=== PATIENT | male | born 1945 | race Caucasian/White ===

== ENCOUNTER 2017-02-12 08:10 | Outpatient (CLI) | payer OTHER, MEDICARE ==
[~2017-02-12 08:10] MED LIST: AMOX-426 PO; ASPI81TA2 PO; ATOR10TA68 PO; AZIT250T PO; DIF100 PO; DOCU-144 PO; FLUT1DIS3 INH; GLIP5TAB13 PO; HYDR-1189 PO; LISI10TA5 PO; MONT10TA22 PO; NYSSUS PO; OMEP20CA4 PO; POTA20TA83 PO; PROR4 PO
== END 2017-02-12 19:33 | disposition home or self-care (01) ==
LOC: SCA 08:10
DX: Z01.818 Encounter for other preprocedural examination (principal); M47.894 Other spondylosis, thoracic region; Z96.651 Presence of right artificial knee joint
CPT/HCPCS: 71020-TC; 93005

== ENCOUNTER 2018-06-07 11:45 | Inpatient (IN) | payer OTHER, MEDICARE ==
[~2018-06-07] VITALS: Ht 177.8 cm; Wt 113.4 kg
[~2018-06-07 11:45] MED LIST changes: +ASPI-1155 PO; -ASPI81TA2 PO; +PROR4 INH
[2018-06-07 12:20] VITALS: BP_SYST 108
[2018-06-07] MEDS ORDERED: ACETAMINOPHEN 325 MG TABLET PO PRN (12:45)
[2018-06-07] MEDS ORDERED: IPRATROPIUM/ALBUTEROL SULFATE 3 ML AMPUL.NEB (DUONEB) INH ONE (12:45)
[2018-06-07 13:18] LABS: RED BLOOD CELL COUNT(AUTO) 5.08 MIL/uL (4.2-6.2)
[2018-06-07 13:19] LABS: BASOPHILS # (AUTO) 0.1 K/uL (0.0-0.2); BASOPHILS % (AUTO) 1.2 % (0.0-2.0); EOSINOPHILS # (AUTO) 0.7 K/uL (0.0-0.4); HEMATOCRIT 44.4 % (36-54); HEMOGLOBIN 14.9 g/dL (14.0-18.0); LYMPHOCYTES # (AUTO) 1.7 K/uL (1.0-5.5); LYMPHOCYTES % (AUTO) 21.9 % (20.5-51.5); MEAN CORPUSCULAR HEMOGLOBIN 29 pg (27-31); MEAN CORPUSCULAR HGB CONC 34 % (32-36); MEAN CORPUSCULAR VOLUME 87 fL (79.0-98.0); MONOCYTES # (AUTO) 1.3 K/uL (0.0-1.0); MONOCYTES % (AUTO) 15.8 % (1.7-9.3); NEUTROPHILS # (AUTO) 4.2 K/uL (1.8-7.7); NEUTROPHILS % (AUTO) 52.1 % (40.0-70.0); PLATELET COUNT (AUTO) 263 K/uL (130-430); RED CELL DISTRIBUTION WIDTH 13.3 % (9.0-15.0)
[2018-06-07 13:23] LABS: ANION GAP 3 (5-15); CALCIUM 8.6 mg/dL (8.4-11.0); CHLORIDE 104 mmol/L (98-107); CREATININE 1.07 mg/dL (0.55-1.30); GLUCOSE 89 mg/dL (70-99); POTASSIUM 3.8 mmol/L (3.5-5.1); SODIUM SERUM 136 mmol/L (136-145); UREA NITROGEN, BLOOD 27 mg/dL (8-21)
[2018-06-07] MEDS ORDERED: LAMOTRIGINE PO (13:57)
[2018-06-07] MEDS ORDERED: SER25 PO (13:57)
[2018-06-07] MEDS ORDERED: IPRA4AER INH (13:57)
[2018-06-07] MEDS ORDERED: HYDR25TA4 PO (13:57)
[2018-06-07] MEDS ORDERED: DESV50TA4 PO (13:57)
[2018-06-07] MEDS ORDERED: PRED10TA PO (13:57)
[2018-06-07] MEDS ORDERED: DOXY100C2 PO (14:01)
[2018-06-07] MEDS ORDERED: POTA8TAB4 PO (14:01)
[2018-06-07] MEDS ORDERED: TAMS-11 PO (14:01)
[2018-06-07 14:10] VITALS: BP_SYST 108
[2018-06-07] MEDS ORDERED: DEXTROSE 50% JECT 50 ML DISP.SYRIN IVP PRN (15:45)
[2018-06-07 15:53] VITALS: BP_SYST 109
[2018-06-07] MEDS ORDERED: guaiFENesin ER 600 MG TAB PO ONE (17:45)
[2018-06-07] MEDS ORDERED: methylPREDNISolone SOD SUCC 40 MG/ML VIAL IVP ONE (17:45)
[2018-06-07] MEDS ORDERED: MONTELUKAST 10 MG TABLET PO SCH (18:00)
[2018-06-07] MEDS: IPRATROPIUM/ALBUTEROL SULFATE 3 ML AMPUL.NEB (DUONEB) INH SCH ×2 (19:34→23:38)
[2018-06-07 20:00] VITALS: BP_SYST 120
[2018-06-07] MEDS: INSULIN REGULAR, HUMAN 100 UNITS/ML, 10 ML VIAL (novoLIN R) SUBCUT PRN (20:05)
[2018-06-07] MEDS: DOCUSATE SODIUM 250 MG CAPSULE PO SCH (20:07)
[2018-06-07] MEDS: LISINOPRIL 10 MG TABLET (PRINIVIL) PO SCH (20:07)
[2018-06-07 20:53] LABS: BILIRUBIN,URINE NEGATIVE (NEGATIVE); BLOOD, URINE NEGATIVE (NEGATIVE); CLARITY/URINE CLEAR (CLEAR); COLOR,URINE YELLOW (YELLOW); GLUCOSE,URINE NEGATIVE (NEGATIVE); KETONES,URINE NEGATIVE (NEGATIVE); LEUKOCYTE ESTERASE ,URINE NEGATIVE (NEGATIVE); NITRITE, URINE NEGATIVE (NEGATIVE); PROTEIN URINE NEGATIVE (NEGATIVE); UROBILINOGEN,URINE 0.2 (0.2-1.0)
[2018-06-07] MEDS: methylPREDNISolone SOD SUCC 40 MG/ML VIAL IVP SCH (21:31)
[2018-06-08 00:32] VITALS: BP_SYST 113
[2018-06-08] MEDS: IPRATROPIUM/ALBUTEROL SULFATE 3 ML AMPUL.NEB (DUONEB) INH SCH ×3 (03:00→11:18)
[2018-06-08] MEDS: INSULIN REGULAR, HUMAN 100 UNITS/ML, 10 ML VIAL (novoLIN R) SUBCUT PRN (06:10)
[2018-06-08 07:44] LABS: ALANINE AMINOTRANSFERASE 23 U/L (12-78); ALBUMIN 3.3 g/dL (3.4-4.8); ANION GAP 7 (5-15); ASPARTATE AMINOTRANSFERASE 14 U/L (10-37); CALCIUM 8.7 mg/dL (8.4-11.0); CHLORIDE 103 mmol/L (98-107); CREATININE 1.19 mg/dL (0.55-1.30); GLUCOSE 187 mg/dL (70-99); POTASSIUM 4.1 mmol/L (3.5-5.1); SODIUM SERUM 137 mmol/L (136-145); TOTAL BILIRUBIN 0.6 mg/dL (0.0-1.0); UREA NITROGEN, BLOOD 23 mg/dL (8-21)
[2018-06-08 07:53] VITALS: BP_SYST 112
[2018-06-08 07:53] LABS: HEMATOCRIT 46.7 % (36-54); HEMOGLOBIN 15.3 g/dL (14.0-18.0); MEAN CORPUSCULAR HEMOGLOBIN 29 pg (27-31); MEAN CORPUSCULAR HGB CONC 33 % (32-36); MEAN CORPUSCULAR VOLUME 88 fL (79.0-98.0); PLATELET COUNT (AUTO) 275 K/uL (130-430); RED CELL DISTRIBUTION WIDTH 13.2 % (9.0-15.0); WHITE BLOOD COUNT (AUTO) 8.2 K/uL (4.8-10.8)
[2018-06-08 07:54] LABS: BASOPHILS % (AUTO) 0.2 % (0.0-2.0); EOSINOPHILS % (AUTO) 0.1 % (0.0-4.0); LYMPHOCYTES # (AUTO) 0.6 K/uL (1.0-5.5); LYMPHOCYTES % (AUTO) 7.3 % (20.5-51.5); MONOCYTES # (AUTO) 0.4 K/uL (0.0-1.0); MONOCYTES % (AUTO) 4.5 % (1.7-9.3); NEUTROPHILS # (AUTO) 7.2 K/uL (1.8-7.7); NEUTROPHILS % (AUTO) 87.9 % (40.0-70.0)
[2018-06-08] MEDS: DOCUSATE SODIUM 250 MG CAPSULE PO SCH (08:32)
[2018-06-08] MEDS: LISINOPRIL 10 MG TABLET (PRINIVIL) PO SCH (08:32)
[2018-06-08 08:38] LABS: ERYTHROCYTE SEDIMENTATION RATE 3 MM/HR (0-15)
[2018-06-08] MEDS ORDERED: guaiFENesin ER 600 MG TAB PO SCH (09:00)
[2018-06-08] MEDS ORDERED: POTASSIUM CHLORIDE 8 MEQ TABLET.SA PO SCH (09:00)
[2018-06-08] MEDS ORDERED: TAMSULOSIN HCL 0.4 MG CAP PO SCH (09:00)
[2018-06-08] MEDS ORDERED: LAMOTRIGINE 200 MG PO SCH (09:00)
[2018-06-08] MEDS ORDERED: PREDNISONE 10 MG TABLET PO SCH (09:00)
[2018-06-08] MEDS ORDERED: DESVENLAFAXINE SUCCINATE 100 MG PO SCH (09:00)
[2018-06-08] MEDS ORDERED: HYDROCHLOROTHIAZIDE 25 MG TABLET (HCTZ) PO SCH (09:00)
[2018-06-08] MEDS ORDERED: ATORVASTATIN 10 MG TABLET PO SCH (09:00)
[2018-06-08] MEDS: methylPREDNISolone SOD SUCC 40 MG/ML VIAL IVP SCH (10:33)
[2018-06-08] MEDS ORDERED: L.RH1CAP PO (11:50)
[2018-06-08] MEDS ORDERED: LEVO750T45 PO (11:50)
[2018-06-08 11:51] VITALS: BP_SYST 110
[2018-06-08 12:07] VITALS: BP_SYST 110
== END 2018-06-08 13:25 | disposition home or self-care (01) | DRG 190 ==
LOC: SMU 11:45
PROVIDERS: ADMIT Internal Medicine; ATTEND Internal Medicine
DX: J44.0 Chronic obstructive pulmonary disease with (acute) lower respiratory infection (principal); J18.9 Pneumonia, unspecified organism; J45.901 Unspecified asthma with (acute) exacerbation; E44.1 Mild protein-calorie malnutrition; R65.10 Systemic inflammatory response syndrome (SIRS) of non-infectious origin without acute organ dysfunction; E11.9 Type 2 diabetes mellitus without complications; I10 Essential (primary) hypertension; E78.5 Hyperlipidemia, unspecified; F32.9 Major depressive disorder, single episode, unspecified; E66.9 Obesity, unspecified; N40.0 Benign prostatic hyperplasia without lower urinary tract symptoms; I25.10 Atherosclerotic heart disease of native coronary artery without angina pectoris; G89.29 Other chronic pain; Z96.651 Presence of right artificial knee joint; J44.1 Chronic obstructive pulmonary disease with (acute) exacerbation; G47.33 Obstructive sleep apnea (adult) (pediatric); R07.89 Other chest pain; Z79.899 Other long term (current) drug therapy; Z68.35 Body mass index [BMI] 35.0-35.9, adult
CPT/HCPCS: 36415; 71045; 71250-TC; 80048; 80053; 81003; 82962; 83036; 83605; 83735-TC; 84484; 85025; 85651-TC; 86710; 87040-TC; 93005; 94640; 94660; 94760; J1030; J1815; J1956; J7620

== ENCOUNTER 2019-01-23 15:04 | Outpatient (CLI) | payer OTHER, MEDICARE ==
[~2019-01-23 15:04] MED LIST changes: -AMOX-426 PO; -ASPI-1155 PO; -AZIT250T PO; +DESV50TA4 PO; -DIF100 PO; -DOCU-144 PO; +DOXY100C2 PO; -FLUT1DIS3 INH; -HYDR-1189 PO; +HYDR25TA4 PO; +IPRA4AER INH; +L.RH1CAP PO; +LAMOTRIGINE PO; +LEVO750T45 PO; -NYSSUS PO; -OMEP20CA4 PO; -POTA20TA83 PO; +POTA8TAB4 PO; +PRED10TA PO; -PROR4 PO; +SER25 PO; +TAMS-11 PO
== END 2019-01-23 21:05 | disposition home or self-care (01) ==
LOC: SCA 15:04
PROVIDERS: ATTEND Internal Medicine
DX: Z01.818 Encounter for other preprocedural examination (principal)
CPT/HCPCS: 93005

== ENCOUNTER 2019-01-26 14:40 | Outpatient (CLI) | payer OTHER, MEDICARE | END 2019-01-26 20:40 | disposition home or self-care (01) | LOC: SRD 14:40 | PROVIDERS: ATTEND Internal Medicine | DX: R05 Cough (principal) | CPT/HCPCS: 71046-TC ==

== ENCOUNTER 2019-04-06 07:10 | Outpatient (CLI) | payer OTHER, MEDICARE ==
[~2019-04-06] VITALS: Ht 180.3 cm; Wt 113.4 kg
[2019-04-06] MEDS ORDERED: REGADENOSON 0.4 MG/5 ML SYRINGE IVP ONE (08:00)
== END 2019-04-06 18:30 | disposition home or self-care (01) ==
LOC: SNM 07:10
PROVIDERS: ATTEND Internal Medicine
DX: I25.10 Atherosclerotic heart disease of native coronary artery without angina pectoris (principal)
CPT/HCPCS: 78452; 93017; A9500; J2785

== ENCOUNTER 2020-08-23 12:01 | Outpatient (CLI) | payer OTHER, MEDICARE ==
[~2020-08-23 12:01] MED LIST changes: +LISI10TA29 PO; -LISI10TA5 PO
== END 2020-08-23 18:03 | disposition home or self-care (01) ==
LOC: SRD 12:01
PROVIDERS: ATTEND Internal Medicine
DX: R05 Cough (principal); M47.814 Spondylosis without myelopathy or radiculopathy, thoracic region
CPT/HCPCS: 71046-TC

== ENCOUNTER 2021-03-03 15:29 | Outpatient (CLI) | payer OTHER, MEDICARE ==
[~2021-03-03 15:29] MED LIST changes: -DOXY100C2 PO; +DOXY100C5 PO
== END 2021-03-03 20:37 | disposition home or self-care (01) ==
LOC: SRD 15:29
PROVIDERS: ATTEND Internal Medicine
DX: J18.9 Pneumonia, unspecified organism (principal); M47.814 Spondylosis without myelopathy or radiculopathy, thoracic region
CPT/HCPCS: 71046-TC

== ENCOUNTER 2021-05-08 11:15 | Outpatient (CLI) | payer OTHER, MEDICARE ==
[~2021-05-08 11:15] MED LIST changes: -POTA8TAB4 PO; +POTA8TAB66 PO
[2021-05-08 12:19] LABS: BILIRUBIN,URINE NEGATIVE (NEGATIVE); BLOOD, URINE NEGATIVE (NEGATIVE); CLARITY/URINE CLEAR (CLEAR); COLOR,URINE YELLOW (YELLOW); GLUCOSE,URINE 3+ (NEGATIVE); KETONES,URINE NEGATIVE (NEGATIVE); LEUKOCYTE ESTERASE ,URINE NEGATIVE (NEGATIVE); NITRITE, URINE NEGATIVE (NEGATIVE); PH,URINE 5.5 (5.0-8.0); PROTEIN URINE NEGATIVE (NEGATIVE); UROBILINOGEN,URINE 0.2 (0.2-1.0)
[2021-05-08 12:32] LABS: BACTERIA,URINE None Seen /HPF (None Seen); MUCUS,URINE None Seen /LPF (None Seen); RBC,URINE NONE SEEN /HPF (0-3); WBC,URINE 0-3 /HPF (0-3)
== END 2021-05-08 19:54 | disposition home or self-care (01) ==
LOC: SLB 11:15
PROVIDERS: ATTEND Internal Medicine
DX: I44.4 Left anterior fascicular block (principal); I49.3 Ventricular premature depolarization; R00.0 Tachycardia, unspecified; I49.9 Cardiac arrhythmia, unspecified; N30.90 Cystitis, unspecified without hematuria
CPT/HCPCS: 81000; 93005

== ENCOUNTER 2021-07-29 10:54 | Outpatient (CLI) | payer OTHER, MEDICARE ==
[2021-07-29 11:35] LABS: ALANINE AMINOTRANSFERASE 22 U/L (12-78); ALBUMIN 3.5 g/dL (3.4-4.8); ANION GAP 6 (5-15); ASPARTATE AMINOTRANSFERASE 17 U/L (10-37); CALCIUM 8.5 mg/dL (8.4-11.0); CHLORIDE 104 mmol/L (98-107); CREATININE 0.94 mg/dL (0.55-1.30); GLUCOSE 150 mg/dL (70-99); POTASSIUM 3.9 mmol/L (3.5-5.1); SODIUM SERUM 137 mmol/L (136-145); TOTAL BILIRUBIN 0.3 mg/dL (0.0-1.0); UREA NITROGEN, BLOOD 17 mg/dL (8-21)
[2021-07-29 11:54] LABS: CHOLESTEROL 142 mg/dL (<200); HDL CHOLESTEROL 42 mg/dL (>45); LDL CHOLESTEROL 84 mg/dL (<100); TRIGLYCERIDES 101 mg/dL (30-150)
== END 2021-07-29 20:40 | disposition home or self-care (01) ==
LOC: SDS 10:54
PROVIDERS: ATTEND Internal Medicine
DX: E11.65 Type 2 diabetes mellitus with hyperglycemia (principal); E78.5 Hyperlipidemia, unspecified
CPT/HCPCS: 36415; 80053; 80061; 83036

== ENCOUNTER 2022-03-18 16:36 | Outpatient (CLI) | payer OTHER, MEDICARE ==
[~2022-03-18 16:36] MED LIST changes: -LEVO750T45 PO; +LEVO750T64 PO
== END 2022-03-18 18:26 | disposition home or self-care (01) ==
LOC: SRD 16:36
PROVIDERS: ATTEND Internal Medicine
DX: J98.11 Atelectasis (principal); J18.9 Pneumonia, unspecified organism; I70.0 Atherosclerosis of aorta; Q25.46 Tortuous aortic arch
CPT/HCPCS: 71046-TC

== ENCOUNTER 2022-07-10 09:28 | Inpatient (IN) | payer OTHER, MEDICARE ==
[~2022-07-10] VITALS: Ht 177.8 cm; Wt 108.9 kg
[~2022-07-10 09:28] MED LIST changes: +MONT-47 PO; -MONT10TA22 PO
[2022-07-10 09:32] VITALS: BP_SYST 113
[2022-07-10] MEDS ORDERED: ONDANSETRON HCL 4 MG/2 ML VIAL IVP ONE (10:00)
[2022-07-10] MEDS ORDERED: MORPHINE 4 MG INJ. 4 MG/ML VIAL IVP ONE (10:00)
[2022-07-10] MEDS ORDERED: NACL 0.9% 1,000 ML IV ONE ×2 (10:00→13:30)
[2022-07-10] MEDS ORDERED: MAGN400C PO (10:09)
[2022-07-10] MEDS ORDERED: EMPA25TA PO (10:09)
[2022-07-10] MEDS ORDERED: OLME20TA74 PO (10:09)
[2022-07-10] MEDS ORDERED: SENN8.6T19 PO (10:09)
[2022-07-10] MEDS ORDERED: LAMO200T2 PO (10:09)
[2022-07-10] MEDS ORDERED: PRED10TA PO (10:09)
[2022-07-10] MEDS ORDERED: ALBU90AE INH (10:09)
[2022-07-10] MEDS ORDERED: VITD2000 PO (10:09)
[2022-07-10] MEDS ORDERED: OLAN2.5T29 PO (10:09)
[2022-07-10] MEDS ORDERED: CYAN250010 PO (10:09)
[2022-07-10] MEDS ORDERED: CLON0.2T PO (10:09)
[2022-07-10] MEDS ORDERED: METF-379 PO (10:09)
[2022-07-10] MEDS ORDERED: DICL50TA9 PO (10:09)
[2022-07-10] MEDS ORDERED: BUDE6HFA INH (10:09)
[2022-07-10 10:46] LABS: BASOPHILS % (AUTO) 0.2 % (0.0-2.0); EOSINOPHILS # (AUTO) 0.1 K/uL (0.0-0.4); EOSINOPHILS % (AUTO) 0.5 % (0.0-4.0); HEMATOCRIT 48.4 % (36-54); HEMOGLOBIN 16.3 g/dL (14.0-18.0); LYMPHOCYTES % (AUTO) 4.8 % (20.5-51.5); MEAN CORPUSCULAR HEMOGLOBIN 30 pg (27-31); MEAN CORPUSCULAR HGB CONC 34 % (32-36); MEAN CORPUSCULAR VOLUME 88 fL (79.0-98.0); MONOCYTES # (AUTO) 3.1 K/uL (0.0-1.0); MONOCYTES % (AUTO) 15.3 % (1.7-9.3); NEUTROPHILS # (AUTO) 16.2 K/uL (1.8-7.7); NEUTROPHILS % (AUTO) 79.2 % (40.0-70.0); PLATELET COUNT (AUTO) 272 K/uL (130-430); RED BLOOD CELL COUNT(AUTO) 5.52 MIL/uL (4.2-6.2); WHITE BLOOD COUNT (AUTO) 20.4 K/uL (4.8-10.8)
[2022-07-10 11:06] LABS: ANION GAP 11 (5-15); CHLORIDE 97 mmol/L (98-107); CREATININE 0.94 mg/dL (0.55-1.30); GLUCOSE 204 mg/dL (70-99); UREA NITROGEN, BLOOD 19 mg/dL (8-21)
[2022-07-10 11:13] LABS: ALANINE AMINOTRANSFERASE 19 U/L (12-78); ALBUMIN 3.3 g/dL (3.4-4.8); ASPARTATE AMINOTRANSFERASE 14 U/L (10-37); LIPASE 36 U/L (73-393); TOTAL BILIRUBIN 1.2 mg/dL (0.0-1.0)
[2022-07-10 11:15] LABS: BILIRUBIN,URINE NEGATIVE (NEGATIVE); BLOOD, URINE 2+ (NEGATIVE); CLARITY/URINE CLEAR (CLEAR); COLOR,URINE YELLOW (YELLOW); GLUCOSE,URINE 3+ (NEGATIVE); KETONES,URINE 2+ (NEGATIVE); LEUKOCYTE ESTERASE ,URINE NEGATIVE (NEGATIVE); NITRITE, URINE NEGATIVE (NEGATIVE); PH,URINE 5.5 (5.0-8.0); PROTEIN URINE NEGATIVE (NEGATIVE); UROBILINOGEN,URINE 0.2 (0.2-1.0)
[2022-07-10] MEDS ORDERED: iohexoL 350 mgI/mL, 100 ML INFUS..BTL IV ONE (11:18)
[2022-07-10 11:26] LABS: RBC,URINE 0-3 /HPF (0-3)
[2022-07-10 11:27] LABS: BACTERIA,URINE RARE /HPF (None Seen); MUCUS,URINE 1+ /LPF (None Seen); WBC,URINE 0-3 /HPF (0-3)
[2022-07-10] MEDS ORDERED: CEFEPIME 1 GM in D5W 50 ML IV ONE (13:30)
[2022-07-10] MEDS ORDERED: CEFEPIME 1 GM/VIAL (MAXIPIME) ONE (13:37)
[2022-07-10] MEDS ORDERED: DEXTROSE 50% JECT 50 ML DISP.SYRIN IVP PRN (13:45)
[2022-07-10] MEDS ORDERED: IPRATROPIUM/ALBUTEROL SULFATE 3 ML AMPUL.NEB (DUONEB) INH PRN (14:30)
[2022-07-10] MEDS ORDERED: ONDANSETRON HCL 4 MG/2 ML VIAL IVP PRN (14:45)
[2022-07-10] MEDS ORDERED: ACETAMINOPHEN 325 MG TABLET PO PRN (14:45)
[2022-07-10] MEDS ORDERED: MORPHINE 4 MG INJ. 4 MG/ML VIAL IVP PRN (14:45)
[2022-07-10] MEDS ORDERED: MORPHINE 2 MG/ML INJ. SYRINGE IVP PRN (14:45)
[2022-07-10] MEDS ORDERED: AZITHROMYCIN 500 MG/VIAL (ZITHROMAX) IV ONE (14:57)
[2022-07-10] MEDS ORDERED: AZITHROMYCIN 500 MG in NS 250 ML IV ONE (15:00)
[2022-07-10] MEDS ORDERED: PANTOPRAZOLE SODIUM 40 MG/VIAL (PROTONIX) IVP ONE (15:00)
[2022-07-10 16:00] VITALS: BP_SYST 137
[2022-07-10 16:08] VITALS: BP_SYST 137
[2022-07-10 20:14] VITALS: BP_SYST 131
[2022-07-10] MEDS: PANTOPRAZOLE SODIUM 40 MG/VIAL (PROTONIX) IVP SCH (21:32)
[2022-07-11] VITALS (9 sets, daily range): BP systolic 73–131
[2022-07-11 07:52] LABS: BASOPHILS % (AUTO) 0.1 % (0.0-2.0); EOSINOPHILS % (AUTO) 0.1 % (0.0-4.0); HEMATOCRIT 46.8 % (36-54); HEMOGLOBIN 15.6 g/dL (14.0-18.0); LYMPHOCYTES # (AUTO) 0.9 K/uL (1.0-5.5); LYMPHOCYTES % (AUTO) 3.3 % (20.5-51.5); MEAN CORPUSCULAR HEMOGLOBIN 29 pg (27-31); MEAN CORPUSCULAR HGB CONC 33 % (32-36); MEAN CORPUSCULAR VOLUME 88 fL (79.0-98.0); MONOCYTES # (AUTO) 3.3 K/uL (0.0-1.0); MONOCYTES % (AUTO) 12.6 % (1.7-9.3); NEUTROPHILS # (AUTO) 21.8 K/uL (1.8-7.7); NEUTROPHILS % (AUTO) 83.9 % (40.0-70.0); PLATELET COUNT (AUTO) 288 K/uL (130-430); RED BLOOD CELL COUNT(AUTO) 5.31 MIL/uL (4.2-6.2); RED CELL DISTRIBUTION WIDTH 13.2 % (9.0-15.0)
[2022-07-11 07:58] LABS: ANION GAP 10 (5-15); C-REACTIVE PROTEIN QUANT 225.8 mg/dL (0-0.5); CALCIUM 8.7 mg/dL (8.4-11.0); CHLORIDE 97 mmol/L (98-107); CREATININE 0.97 mg/dL (0.55-1.30); GLUCOSE 204 mg/dL (70-99); UREA NITROGEN, BLOOD 17 mg/dL (8-21)
[2022-07-11] MEDS: PANTOPRAZOLE SODIUM 40 MG/VIAL (PROTONIX) IVP SCH ×2 (09:44→20:17)
[2022-07-11 12:00] LABS: ERYTHROCYTE SEDIMENTATION RATE 70 MM/HR (0-15)
[2022-07-11] MEDS: INSULIN REGULAR, HUMAN 100 UNITS/ML, 3 ML VIAL (humuLIN R) SUBCUT PRN (12:26)
[2022-07-11] MEDS ORDERED: cefTRIAXone 1 GM in D5W 50 ML IV SCH (14:00)
[2022-07-11] MEDS ORDERED: AZITHROMYCIN 500 MG in NS 250 ML IV SCH (15:00)
[2022-07-11] MEDS ORDERED: BISACODYL 5 MG TABLET.DR (DULCOLAX) PO ONE (15:00)
[2022-07-11] MEDS ORDERED: DIATR MEGLU/DIATRIZ SOD 30 ML SOLUTION PO ONE (15:29)
[2022-07-11] MEDS ORDERED: NACL 0.9% 1,000 ML IV ONE ×2 (20:00→21:00)
[2022-07-11] MEDS ORDERED: ALBUMIN HUMAN 25% 100 ML IV ONE (20:00)
[2022-07-11] MEDS: POLYETHYLENE GLYCOL 3350, 17 GM/ POWD.PACK PO SCH (20:17)
[2022-07-11] MEDS ORDERED: metroNIDAZOLE 500 mg/NS 100 ML IV ONE (21:28)
[2022-07-11] MEDS ORDERED: PIPERACILLIN/TAZOBACTAM 4.5 GM/VIAL (ZOSYN) IV ONE (21:28)
[2022-07-11] MEDS: PIPERACILLIN/TAZO 4.5GM/DEX-IS 100 ML IV SCH (21:31)
[2022-07-11] MEDS: metroNIDAZOLE 500 mg/NS 100 ML IV SCH (21:34)
[2022-07-11] MEDS: NACL 0.9% 1,000 ML IV SCH (22:44)
[2022-07-11] MEDS ORDERED: NOREPINEPHRINE BITARTRATE 4 MG in NS 246 ML IV PRN (22:45)
[2022-07-12] VITALS (18 sets, daily range): BP systolic 61–128
[2022-07-12] MEDS ORDERED: DIPHENHYDRAMINE INJ 50 MG/ML VIAL IVP ONE (01:00)
[2022-07-12] MEDS ORDERED: NOREPINEPHRINE 4 MG/4 ML VIAL IV ONE (01:18)
[2022-07-12] MEDS: NACL 0.9% 1,000 ML IV SCH ×3 (04:40→18:58)
[2022-07-12] MEDS: metroNIDAZOLE 500 mg/NS 100 ML IV SCH ×3 (06:18→21:44)
[2022-07-12] MEDS: PIPERACILLIN/TAZO 4.5GM/DEX-IS 100 ML IV SCH ×3 (06:19→21:45)
[2022-07-12 06:24] LABS: BASOPHILS % (AUTO) 0.2 % (0.0-2.0); EOSINOPHILS # (AUTO) 0.3 K/uL (0.0-0.4); EOSINOPHILS % (AUTO) 1.6 % (0.0-4.0); HEMATOCRIT 38.6 % (36-54); HEMOGLOBIN 12.8 g/dL (14.0-18.0); LYMPHOCYTES # (AUTO) 0.6 K/uL (1.0-5.5); LYMPHOCYTES % (AUTO) 3.7 % (20.5-51.5); MEAN CORPUSCULAR HEMOGLOBIN 29 pg (27-31); MEAN CORPUSCULAR HGB CONC 33 % (32-36); MEAN CORPUSCULAR VOLUME 87 fL (79.0-98.0); MONOCYTES # (AUTO) 2.4 K/uL (0.0-1.0); MONOCYTES % (AUTO) 13.5 % (1.7-9.3); NEUTROPHILS # (AUTO) 14.2 K/uL (1.8-7.7); PLATELET COUNT (AUTO) 265 K/uL (130-430); RED BLOOD CELL COUNT(AUTO) 4.42 MIL/uL (4.2-6.2); RED CELL DISTRIBUTION WIDTH 12.9 % (9.0-15.0)
[2022-07-12 06:26] LABS: ANION GAP 7 (5-15); CALCIUM 7.7 mg/dL (8.4-11.0); CHLORIDE 99 mmol/L (98-107); CREATININE 1.63 mg/dL (0.55-1.30); GLUCOSE 141 mg/dL (70-99); UREA NITROGEN, BLOOD 29 mg/dL (8-21)
[2022-07-12 06:38] LABS: ALANINE AMINOTRANSFERASE 19 U/L (12-78); ALBUMIN 2.4 g/dL (3.4-4.8); ASPARTATE AMINOTRANSFERASE 18 U/L (10-37); CHOLESTEROL 89 mg/dL (<200); HDL CHOLESTEROL 31 mg/dL (>45); LIPASE 47 U/L (73-393); THYROID STIMULATING HORMONE 1.46 uIu/mL (0.34-4.82); TOTAL BILIRUBIN 0.9 mg/dL (0.0-1.0); TRIGLYCERIDES 73 mg/dL (30-150)
[2022-07-12 07:39] LABS: WHITE BLOOD COUNT (AUTO) 17.5 K/uL (4.8-10.8)
[2022-07-12] MEDS ORDERED: HYDROmorphone 1 MG/ML INJ. CARTRIDGE IVP PRN (07:45)
[2022-07-12] MEDS ORDERED: NALOXONE HCL 0.4 MG/ML AMP (NARCAN) IVP PRN (07:45)
[2022-07-12] MEDS ORDERED: HYDROCORTISONE SOD SUCC 100 MG/2 ML VIAL IVP ONE (08:00)
[2022-07-12] MEDS ORDERED: HYDROCORTISONE SOD SUCC 100 MG/2 ML VIAL ONE (08:02)
[2022-07-12] MEDS: POLYETHYLENE GLYCOL 3350, 17 GM/ POWD.PACK PO SCH ×2 (09:00→20:43)
[2022-07-12] MEDS: PANTOPRAZOLE SODIUM 40 MG/VIAL (PROTONIX) IVP SCH ×2 (09:41→20:43)
[2022-07-12] MEDS: HYDROmorphone 1 MG/ML INJ. CARTRIDGE IVP PRN (09:45)
[2022-07-12 10:05] LABS: INR 1.2 (0.80-1.20); PROTHROMBIN TIME 12.2 SECS (9.5-12.5)
[2022-07-12] MEDS ORDERED: ePHEDrine sulfate 50 MG/ML VIAL ONE (11:32)
[2022-07-12] MEDS ORDERED: LR 1,000 ML IV.SOLN IV ONE (11:32)
[2022-07-12] MEDS ORDERED: PROPOFOL 200MG/ 20ML VIAL (DIPRIVAN) IV ONE (11:32)
[2022-07-12] MEDS ORDERED: ROCURONIUM BROMIDE 10 MG/ML (ZEMURON) ONE (11:32)
[2022-07-12] MEDS ORDERED: ONDANSETRON HCL 4 MG/2 ML VIAL ONE (11:32)
[2022-07-12] MEDS ORDERED: ETOMIDATE 20 MG/ 10 ML VIAL (AMIDATE) ONE (11:32)
[2022-07-12] MEDS ORDERED: HYDROMORPHONE HCL IN 0.9% NACL 0.2 MG/ML DRIP IV ONE (11:32)
[2022-07-12] MEDS ORDERED: WATER FOR IRRIGATION,STERILE 1,000 ML IRRIG.SOLN IR ONE (11:32)
[2022-07-12] MEDS ORDERED: NS IRRIG SOLN 1000 ML IR ONE (11:32)
[2022-07-12] MEDS ORDERED: MIDAZOLAM HCL 2 MG/2 ML VIAL (VERSED) ONE (11:32)
[2022-07-12] MEDS ORDERED: metroNIDAZOLE 500 mg/NS 100 mL IVPB IV ONE (11:32)
[2022-07-12] MEDS ORDERED: NS 1000 ML IV.SOLN IV ONE (11:32)
[2022-07-12] MEDS ORDERED: BUPIVACAINE /EPINEPHRINE/PF 0.5% 30 ML VIAL INJ ONE (11:32)
[2022-07-12] MEDS ORDERED: SEVOFLURANE 15 MIN GAS INH ONE (11:32)
[2022-07-12] MEDS ORDERED: PIPERACILLIN/TAZOBACTAM 3.375 GM/VIAL (ZOSYN) IV ONE (11:32)
[2022-07-12] MEDS: INSULIN REGULAR, HUMAN 100 UNITS/ML, 3 ML VIAL (humuLIN R) SUBCUT PRN ×2 (18:55→21:17)
[2022-07-13] VITALS (24 sets, daily range): BP systolic 91–140
[2022-07-13 04:58] LABS: BASOPHILS % (AUTO) 0.2 % (0.0-2.0); EOSINOPHILS # (AUTO) 0.2 K/uL (0.0-0.4); EOSINOPHILS % (AUTO) 1.6 % (0.0-4.0); HEMATOCRIT 36.9 % (36-54); HEMOGLOBIN 12.5 g/dL (14.0-18.0); LYMPHOCYTES # (AUTO) 0.9 K/uL (1.0-5.5); LYMPHOCYTES % (AUTO) 6.6 % (20.5-51.5); MEAN CORPUSCULAR HEMOGLOBIN 30 pg (27-31); MEAN CORPUSCULAR HGB CONC 34 % (32-36); MEAN CORPUSCULAR VOLUME 87 fL (79.0-98.0); MONOCYTES # (AUTO) 1.9 K/uL (0.0-1.0); MONOCYTES % (AUTO) 14.2 % (1.7-9.3); NEUTROPHILS # (AUTO) 10.1 K/uL (1.8-7.7); NEUTROPHILS % (AUTO) 77.4 % (40.0-70.0); PLATELET COUNT (AUTO) 305 K/uL (130-430); RED BLOOD CELL COUNT(AUTO) 4.23 MIL/uL (4.2-6.2); RED CELL DISTRIBUTION WIDTH 13.3 % (9.0-15.0); WHITE BLOOD COUNT (AUTO) 13.1 K/uL (4.8-10.8)
[2022-07-13 05:36] LABS: ALANINE AMINOTRANSFERASE 30 U/L (12-78); ALBUMIN 2.2 g/dL (3.4-4.8); ANION GAP 9 (5-15); ASPARTATE AMINOTRANSFERASE 35 U/L (10-37); CALCIUM 7.6 mg/dL (8.4-11.0); CHLORIDE 102 mmol/L (98-107); GLUCOSE 114 mg/dL (70-99); TOTAL BILIRUBIN 0.5 mg/dL (0.0-1.0); UREA NITROGEN, BLOOD 35 mg/dL (8-21)
[2022-07-13] MEDS: metroNIDAZOLE 500 mg/NS 100 ML IV SCH ×3 (06:18→21:41)
[2022-07-13] MEDS: PIPERACILLIN/TAZO 4.5GM/DEX-IS 100 ML IV SCH ×3 (06:18→21:42)
[2022-07-13] MEDS: NACL 0.9% 1,000 ML IV SCH ×3 (08:57→12:34)
[2022-07-13] MEDS: POLYETHYLENE GLYCOL 3350, 17 GM/ POWD.PACK PO SCH ×2 (09:02→21:24)
[2022-07-13] MEDS: PANTOPRAZOLE SODIUM 40 MG/VIAL (PROTONIX) IVP SCH ×2 (09:02→12:32)
[2022-07-13] MEDS: HYDROmorphone 1 MG/ML INJ. CARTRIDGE IVP PRN (12:28)
[2022-07-13] MEDS ORDERED: SENNOSIDES 8.6 MG TABLET PO PRN (17:45)
[2022-07-13] MEDS: LR 1,000 ML IV SCH (18:24)
[2022-07-13] MEDS: ALBUTEROL SULFATE 0.083% 2.5 MG/3 ML VIAL.NEB INH SCH (19:58)
[2022-07-13] MEDS: BUDESONIDE 0.5 MG/2 ML AMPUL.NEB INH SCH (19:59)
[2022-07-13] MEDS ORDERED: BUDESONIDE/FORMOTEROL 160-4.5 mCg, 6 GM INHALER INH SCH (21:00)
[2022-07-13] MEDS: LACTOBACILLUS RHAMNOSUS GG 1 CAP CAPSULE PO SCH (21:22)
[2022-07-13] MEDS: TAMSULOSIN HCL 0.4 MG CAP PO SCH (21:23)
[2022-07-13] MEDS: ENOXAPARIN SODIUM 40 MG/0.4 ML SYRINGE SUBCUT SCH (21:24)
[2022-07-14] VITALS: BP_SYST 85
[2022-07-14] MEDS: LR 1,000 ML IV SCH (03:00)
[2022-07-14 05:17] LABS: BASOPHILS # (AUTO) 0.1 K/uL (0.0-0.2); BASOPHILS % (AUTO) 0.7 % (0.0-2.0); EOSINOPHILS # (AUTO) 1.5 K/uL (0.0-0.4); EOSINOPHILS % (AUTO) 18.4 % (0.0-4.0); HEMATOCRIT 36.1 % (36-54); HEMOGLOBIN 12.2 g/dL (14.0-18.0); LYMPHOCYTES # (AUTO) 1.1 K/uL (1.0-5.5); LYMPHOCYTES % (AUTO) 14.4 % (20.5-51.5); MEAN CORPUSCULAR HEMOGLOBIN 30 pg (27-31); MEAN CORPUSCULAR HGB CONC 34 % (32-36); MEAN CORPUSCULAR VOLUME 87 fL (79.0-98.0); MONOCYTES # (AUTO) 1.3 K/uL (0.0-1.0); MONOCYTES % (AUTO) 16.2 % (1.7-9.3); NEUTROPHILS % (AUTO) 50.3 % (40.0-70.0); PLATELET COUNT (AUTO) 339 K/uL (130-430); RED BLOOD CELL COUNT(AUTO) 4.12 MIL/uL (4.2-6.2); RED CELL DISTRIBUTION WIDTH 13.4 % (9.0-15.0); WHITE BLOOD COUNT (AUTO) 7.9 K/uL (4.8-10.8)
[2022-07-14 05:57] LABS: CHLORIDE 104 mmol/L (98-107)
[2022-07-14 05:58] LABS: ALANINE AMINOTRANSFERASE 26 U/L (12-78); ALBUMIN 2.1 g/dL (3.4-4.8); ANION GAP 6 (5-15); ASPARTATE AMINOTRANSFERASE 27 U/L (10-37); CALCIUM 7.7 mg/dL (8.4-11.0); CREATININE 0.96 mg/dL (0.55-1.30); GLUCOSE 110 mg/dL (70-99); TOTAL BILIRUBIN 0.5 mg/dL (0.0-1.0); UREA NITROGEN, BLOOD 27 mg/dL (8-21)
[2022-07-14] MEDS: metroNIDAZOLE 500 mg/NS 100 ML IV SCH ×3 (06:03→22:20)
[2022-07-14] MEDS: PIPERACILLIN/TAZO 4.5GM/DEX-IS 100 ML IV SCH ×3 (06:05→22:19)
[2022-07-14 07:55] VITALS: BP_SYST 102
[2022-07-14] MEDS: ALBUTEROL SULFATE 0.083% 2.5 MG/3 ML VIAL.NEB INH SCH ×2 (08:10→15:00)
[2022-07-14] MEDS: BUDESONIDE 0.5 MG/2 ML AMPUL.NEB INH SCH (08:10)
[2022-07-14] MEDS: POLYETHYLENE GLYCOL 3350, 17 GM/ POWD.PACK PO SCH ×3 (08:14→21:00)
[2022-07-14] MEDS: ATORVASTATIN 10 MG TABLET PO SCH (08:15)
[2022-07-14] MEDS: PANTOPRAZOLE SODIUM 40 MG/VIAL (PROTONIX) IVP SCH ×2 (08:15→20:44)
[2022-07-14] MEDS: CHOLECALCIFEROL (VITAMIN D3) 2,000 UNIT TABLET PO SCH (08:15)
[2022-07-14] MEDS: TAMSULOSIN HCL 0.4 MG CAP PO SCH ×2 (08:15→20:44)
[2022-07-14] MEDS: LACTOBACILLUS RHAMNOSUS GG 1 CAP CAPSULE PO SCH ×2 (08:15→20:44)
[2022-07-14] MEDS: MONTELUKAST 10 MG TABLET PO SCH (08:15)
[2022-07-14] MEDS: INSULIN REGULAR, HUMAN 100 UNITS/ML, 3 ML VIAL (humuLIN R) SUBCUT PRN ×2 (11:17→22:32)
[2022-07-14 11:26] VITALS: BP_SYST 128
[2022-07-14 15:29] VITALS: BP_SYST 122
[2022-07-14] MEDS ORDERED: CIPR500T5 PO (17:50)
[2022-07-14] MEDS ORDERED: METR-343 PO (17:51)
[2022-07-14] MEDS ORDERED: LACT1TAB26 PO (17:52)
[2022-07-14 20:00] VITALS: BP_SYST 130
[2022-07-14] MEDS: ENOXAPARIN SODIUM 40 MG/0.4 ML SYRINGE SUBCUT SCH (20:46)
[2022-07-15 00:16] VITALS: BP_SYST 149
[2022-07-15] MEDS: ALBUTEROL SULFATE 0.083% 2.5 MG/3 ML VIAL.NEB INH SCH ×4 (01:00→13:00)
[2022-07-15] MEDS: BUDESONIDE 0.5 MG/2 ML AMPUL.NEB INH SCH ×2 (05:25→07:31)
[2022-07-15] MEDS: PIPERACILLIN/TAZO 4.5GM/DEX-IS 100 ML IV SCH (05:43)
[2022-07-15] MEDS: metroNIDAZOLE 500 mg/NS 100 ML IV SCH (05:45)
[2022-07-15 07:31] LABS: BASOPHILS # (AUTO) 0.1 K/uL (0.0-0.2); BASOPHILS % (AUTO) 0.9 % (0.0-2.0); EOSINOPHILS # (AUTO) 1.9 K/uL (0.0-0.4); HEMATOCRIT 41.4 % (36-54); HEMOGLOBIN 13.8 g/dL (14.0-18.0); LYMPHOCYTES # (AUTO) 1.4 K/uL (1.0-5.5); LYMPHOCYTES % (AUTO) 19.2 % (20.5-51.5); MEAN CORPUSCULAR HEMOGLOBIN 30 pg (27-31); MEAN CORPUSCULAR HGB CONC 33 % (32-36); MEAN CORPUSCULAR VOLUME 88 fL (79.0-98.0); MONOCYTES # (AUTO) 1.2 K/uL (0.0-1.0); MONOCYTES % (AUTO) 16.1 % (1.7-9.3); NEUTROPHILS # (AUTO) 2.8 K/uL (1.8-7.7); NEUTROPHILS % (AUTO) 37.8 % (40.0-70.0); PLATELET COUNT (AUTO) 416 K/uL (130-430); RED BLOOD CELL COUNT(AUTO) 4.69 MIL/uL (4.2-6.2); RED CELL DISTRIBUTION WIDTH 13.1 % (9.0-15.0); WHITE BLOOD COUNT (AUTO) 7.4 K/uL (4.8-10.8)
[2022-07-15 08:15] VITALS: BP_SYST 148
[2022-07-15 08:23] LABS: ALANINE AMINOTRANSFERASE 24 U/L (12-78); ALBUMIN 2.5 g/dL (3.4-4.8); ANION GAP 9 (5-15); ASPARTATE AMINOTRANSFERASE 25 U/L (10-37); CALCIUM 8.5 mg/dL (8.4-11.0); CHLORIDE 103 mmol/L (98-107); CREATININE 0.88 mg/dL (0.55-1.30); GLUCOSE 112 mg/dL (70-99); TOTAL BILIRUBIN 0.6 mg/dL (0.0-1.0); UREA NITROGEN, BLOOD 18 mg/dL (8-21)
[2022-07-15] MEDS: MONTELUKAST 10 MG TABLET PO SCH (09:34)
[2022-07-15] MEDS: ATORVASTATIN 10 MG TABLET PO SCH (09:34)
[2022-07-15] MEDS: TAMSULOSIN HCL 0.4 MG CAP PO SCH (09:34)
[2022-07-15] MEDS: PANTOPRAZOLE SODIUM 40 MG/VIAL (PROTONIX) IVP SCH (09:34)
[2022-07-15] MEDS: LACTOBACILLUS RHAMNOSUS GG 1 CAP CAPSULE PO SCH (09:34)
[2022-07-15] MEDS: CHOLECALCIFEROL (VITAMIN D3) 2,000 UNIT TABLET PO SCH (09:35)
[2022-07-15] MEDS: POLYETHYLENE GLYCOL 3350, 17 GM/ POWD.PACK PO SCH (09:35)
[2022-07-15 11:26] VITALS: BP_SYST 116
== END 2022-07-15 16:10 | disposition home health service (06) | DRG 853 ==
LOC: SED 09:28 → STU 13:32 → SIC 07-11 22:59 → SMU 07-14 00:29 → STU 07-14 00:51 → SMU 07-14 23:28
PROVIDERS: ADMIT Internal Medicine; ATTEND Internal Medicine
PROC: 5A09357 Assistance with Respiratory Ventilation, Less than 24 Consecutive Hours, Continuous Positive Airway Pressure (ICD-10-PCS; 2022-07-11)
PROC: 0DNU4ZZ Release Omentum, Percutaneous Endoscopic Approach (ICD-10-PCS; 2022-07-12)
PROC: 0FC94ZZ Extirpation of Matter from Common Bile Duct, Percutaneous Endoscopic Approach (ICD-10-PCS; 2022-07-12)
PROC: 5A09357 Assistance with Respiratory Ventilation, Less than 24 Consecutive Hours, Continuous Positive Airway Pressure (ICD-10-PCS; 2022-07-12)
PROC: 0FT44ZZ Resection of Gallbladder, Percutaneous Endoscopic Approach (ICD-10-PCS; principal; 2022-07-12 11:30)
PROC: 5A09357 Assistance with Respiratory Ventilation, Less than 24 Consecutive Hours, Continuous Positive Airway Pressure (ICD-10-PCS; 2022-07-13)
PROC: 5A09357 Assistance with Respiratory Ventilation, Less than 24 Consecutive Hours, Continuous Positive Airway Pressure (ICD-10-PCS; 2022-07-14)
DX: A41.9 Sepsis, unspecified organism (principal); E43 Unspecified severe protein-calorie malnutrition; R65.21 Severe sepsis with septic shock; K81.0 Acute cholecystitis; K82.A1 Gangrene of gallbladder in cholecystitis; E11.9 Type 2 diabetes mellitus without complications; E66.9 Obesity, unspecified; E78.5 Hyperlipidemia, unspecified; G89.29 Other chronic pain; I10 Essential (primary) hypertension; J44.9 Chronic obstructive pulmonary disease, unspecified; K21.9 Gastro-esophageal reflux disease without esophagitis; K59.00 Constipation, unspecified; K66.0 Peritoneal adhesions (postprocedural) (postinfection); K82.8 Other specified diseases of gallbladder; F32.A Depression, unspecified; G47.33 Obstructive sleep apnea (adult) (pediatric); N40.0 Benign prostatic hyperplasia without lower urinary tract symptoms; Z96.651 Presence of right artificial knee joint; K76.0 Fatty (change of) liver, not elsewhere classified; Z86.79 Personal history of other diseases of the circulatory system; Z83.3 Family history of diabetes mellitus; Z82.49 Family history of ischemic heart disease and other diseases of the circulatory system; Z81.8 Family history of other mental and behavioral disorders; Z68.34 Body mass index [BMI] 34.0-34.9, adult
CPT/HCPCS: 36415; 71045; 71275; 74018; 76376; 76705; 80048; 80053; 80061; 81000; 82550; 82962; 83605; 83690; 83735; 83880; 84443; 84484; 85025; 85610-TC; 85651-TC; 85730-TC; 86140; 86886; 86900; 86901; 87040; 87081; 88304; 93005; 93306; 94640; 94660; 94760; 96361; 96365; 96367; 96375; 97110-GP; 97116-GP; 97530-GP; 99285; C1727; C9113; G0378; J0456; J0692; J0696; J1170; J1200; J1650; J1720; J1815; J2270; J2405; J2543; J2704; J3465; J3490; J7030; J7050; J7060; J7120; J7613; J7626; Q9964; Q9967